=== PATIENT | female | born 1940 | race Caucasian/White ===

== ENCOUNTER 2019-04-25 | Emergency (ER) | payer MEDICARE ==
[~2019-04-25] MED LIST: ADVAIR DISKU INH; ALBUTEROL SUL0.083 % IN; ALPRAZOLAM0.25 MG PO; ANTIVERT PO; ATROVENT HFA17 MCG IN; BAYER ASPIRIN E81 MG PO; CIPROFLOXACN250 M1 PO; FENOFIBRATE160 MG PO; FLORASTOR250 M1 PO; LEVAQUIN500 MG PO; LEVEMIR FL100 UNIT/M SC; LEVOTHYROXIN50 MC1 PO; LISINOPRIL20 M1 PO; METFORMIN HCL500 M1 PO; METOPROL TAR25 MG PO; NEO/POLY/HC AS; NEO/POLY/HC OP; PLAVIX75 MG PO; PREDNISONE10 MG PO; ROBITUSSIN10 ML PO; SINGULAIR PO
[2019-04-25 10:45] LABS: HEMATOCRIT 41.9 % (37.0-47.0); IMMATURE GRANULOCYTES 0.6 % (0.0-5.0); MEAN CELL VOLUME 82.2 fL CALC (80.0-100.0); MEAN CORPUSCULAR HGB 25.5 pG CALC (26.0-32.0); NEUT# 12.6 thou/uL (2.00-7.15); RED BLOOD COUNT 5.1 mill/uL (4.20-5.60); RED CELL DISTRI WIDTH 14.6 % (11.5-15.5)
[2019-04-25] MEDS ORDERED: NORVASC5 M1 PO (10:49)
[2019-04-25] MEDS ORDERED: METOPROL TAR25 MG PO (10:49)
[2019-04-25 11:33] LABS: INTERNATIONAL NORMALIZED RATIO 1.1 RATIO (0.7-1.3); PROTHROMBIN TIME 11.6 SECONDS (9.0-12.5)
[2019-04-25 11:37] LABS: BILIRUBIN, TOTAL 0.5 mg/dL (0.0-1.4); CREATININE 1.6 mg/dL (0.5-1.0); POTASSIUM 4.2 mmol/l (3.5-5.1); TOTAL PROTEIN 7.6 g/dL (6.3-8.2)
== END 2019-04-25 15:26 | disposition short-term general hospital (02) ==
DX: I21.4 Non-ST elevation (NSTEMI) myocardial infarction (principal); J44.1 Chronic obstructive pulmonary disease with (acute) exacerbation; I12.9 Hypertensive chronic kidney disease with stage 1 through stage 4 chronic kidney disease, or unspecified chronic kidney disease; N18.3 Chronic kidney disease, stage 3 (moderate); F17.200 Nicotine dependence, unspecified, uncomplicated; Z95.5 Presence of coronary angioplasty implant and graft
CPT/HCPCS: J1644; J1956

== ENCOUNTER 2020-02-03 18:46 | Inpatient (IN) | payer MEDICARE ==
[~2020-02-03] VITALS: Ht 157.5 cm; Wt 74.0 kg
[~2020-02-03 18:46] MED LIST changes: +NORVASC5 M1 PO
[2020-02-03 19:20] VITALS: BP 144/67
[2020-02-03 21:00] LABS: HEMATOCRIT 40.5 % (37.0-47.0); HEMOGLOBIN 12.4 g/dl (12.0-16.0); IMMATURE GRANULOCYTES 0.8 % (0.0-5.0); MEAN CELL VOLUME 80.8 fL CALC (80.0-100.0); MEAN CORPUSCULAR HGB 24.8 pG CALC (26.0-32.0); MEAN CORPUSCULAR HGB CONC 30.6 g/dL CAL (32.0-36.0); NEUT# 8.86 thou/uL (2.00-7.15); RED BLOOD COUNT 5.01 mill/uL (4.20-5.60); RED CELL DISTRI WIDTH 15.3 % (11.5-15.5)
[2020-02-03 21:11] LABS: ALBUMIN 3.8 g/dL (3.2-5.0); BILIRUBIN, TOTAL 0.3 mg/dL (0.0-1.4); CREATININE 1.2 mg/dL (0.5-1.0); TOTAL PROTEIN 6.8 g/dL (6.3-8.2)
[2020-02-04 00:57] LABS: URINE BILIRUBIN - DIPSTICK NEGATIVE (NEGATIVE); URINE BLOOD DIPSTICK NEGATIVE (NEGATIVE); URINE CLARITY CLEAR; URINE COLOR YELLOW; URINE GLUCOSE - DIPSTICK NEGATIVE (NEGATIVE); URINE KETONE NEGATIVE (NEGATIVE); URINE LEUK ESTERASE SMALL (Negative); URINE NITRITE - DIPSTICK NEGATIVE (Negative); URINE PROTEIN - DIPSTICK NEGATIVE (NEG-TRACE); URINE UROBILINOGEN - DIPSTICK 0.2 E.U./dL (0.2)
[2020-02-04 01:27] LABS: URINE SQUAMOUS EPITHELIAL CELL FEW EPI/hpf (0-FEW); URINE YEAST FEW hpf
[2020-02-04 04:40] VITALS: BP 145/58
[2020-02-04] MEDS ORDERED: NOVOLIN N100 UNIT/1 SC ×2 (05:16→05:17)
[2020-02-04] MEDS ORDERED: LOPID600 MG PO (05:18)
[2020-02-04 05:39] LABS: ALBUMIN 3.5 g/dL (3.2-5.0); ALKALINE PHOSPHATASE 168 u/l (38-126); ANION GAP 14 (6-22 (CALC)); BILIRUBIN, TOTAL 0.4 mg/dL (0.0-1.4); BUN 29 mg/dL (8-23); BUN/CREATININE RATIO 28 (12-20 (CALC)); CARBON DIOXIDE 22 mmol/l (22-30); CHLORIDE 104 mmol/l (95-108); GFR 53 ML/MIN (>=60 (CALC)); GFR FOR AFR.AMER. > 60 ML/MIN (>=60 (CALC)); SGOT/AST 22 u/l (9-36); SODIUM 135 mmol/l (137-146); TOTAL PROTEIN 6.4 g/dL (6.3-8.2)
[2020-02-04] MEDS ORDERED: LEVOTHYROXIN50 MC1 PO (05:47)
[2020-02-04 08:16] VITALS: BP 161/61
[2020-02-04 10:30] VITALS: BP 140/58
[2020-02-04 15:00] VITALS: BP 133/56
== END 2020-02-04 18:04 | disposition short-term general hospital (02) | DRG 188 ==
LOC: MS2 18:46
PROVIDERS: ADMIT Internal Medicine; ATTEND Internal Medicine
PROC: 0W9B3ZZ Drainage of Left Pleural Cavity, Percutaneous Approach (ICD-10-PCS; principal; 2020-02-04)
DX: J90 Pleural effusion, not elsewhere classified (principal); R09.02 Hypoxemia; J44.9 Chronic obstructive pulmonary disease, unspecified; E11.22 Type 2 diabetes mellitus with diabetic chronic kidney disease; I12.9 Hypertensive chronic kidney disease with stage 1 through stage 4 chronic kidney disease, or unspecified chronic kidney disease; N18.30 Chronic kidney disease, stage 3 unspecified; I25.10 Atherosclerotic heart disease of native coronary artery without angina pectoris; E03.9 Hypothyroidism, unspecified; E78.5 Hyperlipidemia, unspecified; F17.210 Nicotine dependence, cigarettes, uncomplicated; Z95.5 Presence of coronary angioplasty implant and graft; Z79.4 Long term (current) use of insulin; Z20.828 Contact with and (suspected) exposure to other viral communicable diseases
CPT/HCPCS: S0073

== ENCOUNTER 2020-02-21 02:15 | Emergency (ER) | payer MEDICARE ==
[~2020-02-21] VITALS: Ht 157.5 cm; Wt 73.0 kg
[~2020-02-21 02:15] MED LIST changes: +LOPID600 MG PO; +NOVOLIN N100 UNIT/1 SC
[2020-02-21 02:54] LABS: HEMATOCRIT 39.3 % (37.0-47.0); IMMATURE GRANULOCYTES 4.6 % (0.0-5.0); MEAN CELL VOLUME 80.5 fL CALC (80.0-100.0); MEAN CORPUSCULAR HGB 24.6 pG CALC (26.0-32.0); MEAN CORPUSCULAR HGB CONC 30.5 g/dL CAL (32.0-36.0); NEUT# 19.22 thou/uL (2.00-7.15); RED BLOOD COUNT 4.88 mill/uL (4.20-5.60); RED CELL DISTRI WIDTH 15.9 % (11.5-15.5)
[2020-02-21 03:07] LABS: ALBUMIN 2.9 g/dL (3.2-5.0); CREATININE 1.5 mg/dL (0.5-1.0)
[2020-02-21 03:26] LABS: BILIRUBIN, TOTAL 0.8 mg/dL (0.0-1.4)
[2020-02-21 03:30] LABS: POTASSIUM 5.3 mmol/l (3.5-5.1)
[2020-02-21] MEDS ORDERED: CALCIUM 600 +600 MG (04:01)
[2020-02-21] MEDS ORDERED: LEVEMIR100 UNIT/M SC (04:05)
[2020-02-21] MEDS ORDERED: Levaquin PO (04:06)
[2020-02-21] MEDS ORDERED: LISINOPRIL20 MG PO (04:07)
[2020-02-21] MEDS ORDERED: PERCOCET 5/321 COMBO PO (04:10)
[2020-02-21] MEDS ORDERED: SPIRIVA HANDIH18 MCG IN (04:12)
[2020-02-21 14:27] VITALS: BP 130/58
== END 2020-02-21 14:27 | disposition hospice, inpatient (51) ==
LOC: ED 02:15
PROVIDERS: Family Medicine
DX: C34.90 Malignant neoplasm of unspecified part of unspecified bronchus or lung (principal); C79.9 Secondary malignant neoplasm of unspecified site; J91.0 Malignant pleural effusion; R09.02 Hypoxemia; E11.22 Type 2 diabetes mellitus with diabetic chronic kidney disease; I12.9 Hypertensive chronic kidney disease with stage 1 through stage 4 chronic kidney disease, or unspecified chronic kidney disease; N18.30 Chronic kidney disease, stage 3 unspecified; F17.200 Nicotine dependence, unspecified, uncomplicated; Z51.5 Encounter for palliative care; Z66 Do not resuscitate; Z97.8 Presence of other specified devices; Z95.5 Presence of coronary angioplasty implant and graft; Z79.4 Long term (current) use of insulin; Z20.828 Contact with and (suspected) exposure to other viral communicable diseases